=== PATIENT | male | born 2000 | race Caucasian/White ===

== ENCOUNTER 2021-06-01 11:56 | Emergency (ER) | payer OTHER ==
[~2021-06-01] VITALS: Ht 167.6 cm; Wt 69.3 kg
[2021-06-01 11:57] VITALS: BP 144/67
--- NOTE | 2021-06-01 12:48 | REP ---
INDICATION: trauma. COMPARISON: None. TECHNIQUE: Four views FINDINGS: No acute fracture or destructive osseous lesion. IMPRESSION: No acute osseous abnormality <Electronically signed by Chris Mortensen > 06/01/21 [id number]
--- NOTE | 2021-06-01 12:48 | REP ---
INDICATION: trauma. COMPARISON: None. TECHNIQUE: Four views FINDINGS: The joint spaces are symmetric and relatively well maintained. There is no evidence of acute fracture or destructive osseous lesion. IMPRESSION: No acute osseous abnormality <Electronically signed by Chris Mortensen > 06/01/21 [id number]
== END 2021-06-01 16:53 | disposition home or self-care (01) ==
LOC: M ED 11:56
DX: S60.221A Contusion of right hand, initial encounter (principal); W22.8XXA Striking against or struck by other objects, initial encounter; Y92.9 Unspecified place or not applicable; Y93.9 Activity, unspecified; Y99.9 Unspecified external cause status